=== PATIENT | female | born 1950 | race Two or more races ===

== ENCOUNTER 2016-08-28 06:36 | Day surgery (SDC) | payer MEDICARE ==
[2016-08-28] MEDS ORDERED: TETRACAINE HCL 0.5% OPHT DROP 2 ML BOTTLE ONE ×2 (06:54→07:07)
[2016-08-28] MEDS ORDERED: FLURBIPROFEN 0.03% OPHT DROP 2.5 ML BOTTLE ONE (06:55)
[2016-08-28] MEDS ORDERED: CIPROFLOXACIN 0.3% OPHT DROP 2.5 ML BOTTLE ONE (06:55)
[2016-08-28] MEDS ORDERED: CYCLOPENTOLATE 1% OPHT DROP 2 ML BOTTLE ONE (06:56)
[2016-08-28] MEDS ORDERED: PHENYLEPHRINE 2.5% OPHT DROP 2 ML BOTTLE ONE (06:56)
[2016-08-28] MEDS ORDERED: BALANCED SALT IRRIG SOLN COMB1 500 ML, EPINEPHRINE-PF 1:1000 1 MG IO ONE ×2 (07:00)
[2016-08-28] MEDS ORDERED: PILOCARPINE 1% OPHT DROP 15 ML BOTTLE ONE (07:06)
[2016-08-28] MEDS ORDERED: NEO/POLYMYX B/DEXAME OPHT OINT 3.5 GM TUBE ONE (07:06)
[2016-08-28] MEDS ORDERED: LIDOCAINE HCL-MPF 1% 5 ML VIAL ONE (07:07)
[2016-08-28] MEDS ORDERED: BALANCED SALT IRRIG SOLN COMB2 15 ML IRRIG.SOLN ONE (07:08)
[2016-08-28] MEDS ORDERED: HYALURONATE SODIUM 8.5 MG/0.85 ML DISP.SYRIN ONE (07:08)
[2016-08-28] MEDS ORDERED: BUPIVACAINE PF 0.5% 30 ML VIAL ONE (07:08)
[2016-08-28] MEDS ORDERED: EPINEPHRINE 1 MG/1 ML AMP ONE (07:08)
[2016-08-28 07:12] LABS: BASOPHILS % (AUTO) 0.4 % (0.0-2.0); EOSINOPHILS # (AUTO) 0.1 K/uL (0.0-0.7); EOSINOPHILS % (AUTO) 1.8 % (0.0-7.0); HEMATOCRIT 41.4 % (31.2-41.9); LYMPHOCYTES # (AUTO) 3.2 K/uL (20.0-40.0); MEAN CORPUSCULAR HGB CONC 34 g/dL (32.3-35.6); MEAN CORPUSCULAR VOLUME 91.9 fL (75.5-95.3); MONOCYTES # (AUTO) 0.5 K/uL (2.0-10.0); MONOCYTES % (AUTO) 6.6 % (0.0-11.0); NEUTROPHILS # (AUTO) 4.3 K/uL (1.8-8.9); NEUTROPHILS % (AUTO) 51.2 % (38.5-71.5); PLATELET COUNT (AUTO) 234 K/uL (179-408); RED BLOOD CELL COUNT(AUTO) 4.51 MIL/uL (3.63-4.92); WHITE BLOOD COUNT (AUTO) 8.1 K/uL (3.8-11.8)
[2016-08-28 07:16] LABS: *BILIRUBIN,URIN NEGATIVE (NEGATIVE); *BLOOD, URINE Trace-intact (NEGATIVE); *CLARITY,URINE CLEAR (CLEAR); *COLOR,URINE YELLOW (YELLOW); *KETONES,URINE NEGATIVE (NEGATIVE); *PROTEIN,URINE NEGATIVE (NEGATIVE); *UROBILINOGEN,URINE 0.2 E.U./dl (NORMAL); NITRITE, URINE NEGATIVE (NEGATIVE); PH,URINE 5.5 (5.0-8.0); UGLUCOSE NEGATIVE (NEGATIVE)
[2016-08-28 07:22] LABS: CREATININE 0.9 mg/dL (0.6-1.3); POTASSIUM 4.4 mmol/L (3.5-5.1)
[2016-08-28 07:27] LABS: LEUKOCYTE ESTERASE ,URINE TRACE (NEGATIVE)
[2016-08-28 07:30] LABS: BACTERIA,URINE NONE SEEN /HPF (NONE SEEN); RBC,URINE 0-3 /HPF (0-3); RENAL EPITHELIAL CELLS,URINE FEW /LPF (NONE SEEN); SQUAMOUS EPITHELIAL CELL,UR FEW /HPF (NONE SEEN)
[2016-08-28] MEDS ORDERED: MIDAZOLAM HCL 2 MG/2 ML VIAL ONE (07:49)
[2016-08-28] MEDS ORDERED: FENTANYL CITRATE 100 MCG/2 ML AMPUL ONE (07:49)
[2016-08-28] MEDS ORDERED: IV NORMAL SALINE 1000 ML BAG IV ONE (14:50)
== END 2016-08-28 10:10 | disposition home or self-care (01) ==
LOC: DS 06:36
PROVIDERS: ATTEND Dermatology MOHS-Micrographic Surgery
PROC: 08RK3JZ Replacement of Left Lens with Synthetic Substitute, Percutaneous Approach (ICD-10-PCS; principal; 2016-08-28 08:30)
DX: H25.9 Unspecified age-related cataract (principal); E11.9 Type 2 diabetes mellitus without complications; H54.3 Unqualified visual loss, both eyes
CPT/HCPCS: 36415; 66984; 71010; 80048; 81001; 82962; 85025; 85730; 93005; A4663; J0171 ×2; J2250; J3010; J3490 ×2; J3590; J7030 ×2; J7321; V2632

== ENCOUNTER 2016-09-18 06:52 | Day surgery (SDC) | payer MEDICARE ==
[2016-09-18] MEDS ORDERED: BALANCED SALT IRRIG SOLN COMB2 15 ML IRRIG.SOLN ONE (07:16)
[2016-09-18] MEDS ORDERED: PILOCARPINE 1% OPHT DROP 15 ML BOTTLE ONE (07:16)
[2016-09-18] MEDS ORDERED: LIDOCAINE HCL-MPF 1% 5 ML VIAL ONE (07:16)
[2016-09-18] MEDS ORDERED: EPINEPHRINE 1 MG/1 ML AMP ONE (07:16)
[2016-09-18] MEDS ORDERED: NEO/POLYMYX B/DEXAME OPHT OINT 3.5 GM TUBE ONE (07:16)
[2016-09-18] MEDS ORDERED: TETRACAINE HCL 0.5% OPHT DROP 2 ML BOTTLE ONE ×2 (07:16→07:19)
[2016-09-18] MEDS ORDERED: HYALURONATE SODIUM 8.5 MG/0.85 ML DISP.SYRIN ONE (07:17)
[2016-09-18] MEDS ORDERED: BUPIVACAINE PF 0.5% 30 ML VIAL ONE (07:17)
[2016-09-18] MEDS ORDERED: FLURBIPROFEN 0.03% OPHT DROP 2.5 ML BOTTLE ONE ×2 (07:19→07:22)
[2016-09-18] MEDS ORDERED: CIPROFLOXACIN 0.3% OPHT DROP 2.5 ML BOTTLE ONE (07:20)
[2016-09-18] MEDS ORDERED: CYCLOPENTOLATE 1% OPHT DROP 2 ML BOTTLE ONE (07:20)
[2016-09-18] MEDS ORDERED: PHENYLEPHRINE 2.5% OPHT DROP 2 ML BOTTLE ONE (07:21)
[2016-09-18 07:30] LABS: BASOPHILS % (AUTO) 0.4 % (0.0-2.0); EOSINOPHILS # (AUTO) 0.1 K/uL (0.0-0.7); EOSINOPHILS % (AUTO) 1.3 % (0.0-7.0); HEMATOCRIT 42.3 % (37-47); HEMOGLOBIN 14.1 G/DL (12.0-16.0); LYMPHOCYTES # (AUTO) 2.7 K/UL (0.8-4.8); LYMPHOCYTES % (AUTO) 35.1 % (20.5-51.5); MEAN CORPUSCULAR HEMOGLOBIN 30.8 UUG (27.0-31.0); MEAN CORPUSCULAR HGB CONC 33 g/dL (32.0-37.0); MEAN CORPUSCULAR VOLUME 92.9 FL (81.0-99.0); MONOCYTES # (AUTO) 0.6 K/UL (0.1-1.30); MONOCYTES % (AUTO) 7.1 % (0.0-11.0); NEUTROPHILS # (AUTO) 4.4 K/UL (1.8-8.9); NEUTROPHILS % (AUTO) 56.1 % (38.5-71.5); PLATELET COUNT (AUTO) 251 K/UL (150-450); RED BLOOD CELL COUNT(AUTO) 4.55 MIL/UL (4.2-5.4); RED CELL DISTRIBUTION WIDTH 13.6 % (11.5-14.5); WHITE BLOOD COUNT (AUTO) 7.8 K/UL (4.0-11.2)
[2016-09-18 07:31] LABS: *BILIRUBIN,URIN NEGATIVE (NEGATIVE); *BLOOD, URINE Trace-intact (NEGATIVE); *CLARITY,URINE CLEAR (CLEAR); *COLOR,URINE YELLOW (YELLOW); *KETONES,URINE NEGATIVE (NEGATIVE); *PROTEIN,URINE NEGATIVE (NEGATIVE); *UROBILINOGEN,URINE 0.2 E.U./dl (NORMAL); LEUKOCYTE ESTERASE ,URINE NEGATIVE (NEGATIVE); NITRITE, URINE NEGATIVE (NEGATIVE); PH,URINE 5.5 (5.0-8.0); UGLUCOSE NEGATIVE (NEGATIVE)
[2016-09-18 07:36] LABS: CALCIUM 9.1 mg/dL (8.5-10.1); CREATININE 0.9 mg/dL (0.6-1.3); POTASSIUM 4.4 mmol/L (3.5-5.1)
[2016-09-18] MEDS ORDERED: MIDAZOLAM HCL 2 MG/2 ML VIAL ONE (07:47)
[2016-09-18] MEDS ORDERED: FENTANYL CITRATE 100 MCG/2 ML AMPUL ONE (07:47)
[2016-09-18 07:48] LABS: RBC,URINE 0-3 /HPF (0-3); SQUAMOUS EPITHELIAL CELL,UR MODERATE /HPF (NONE SEEN); TRANSITIONAL EPI CELLS,URINE FEW /LPF (NONE SEEN)
[2016-09-18] MEDS ORDERED: BALANCED SALT IRRIG SOLN COMB1 500 ML, EPINEPHRINE-PF 1:1000 1 MG IO ONE ×2 (08:00)
== END 2016-09-18 09:58 | disposition home or self-care (01) ==
LOC: DS 06:52
PROVIDERS: ATTEND Dermatology MOHS-Micrographic Surgery
DX: H25.89 Other age-related cataract (principal); E11.9 Type 2 diabetes mellitus without complications; F41.9 Anxiety disorder, unspecified
CPT/HCPCS: 36415; 85025; 85730; A4663; J0171; J2250; J3010; J3490; J3590; J7030; J7321; V2632